=== PATIENT | male | born 1990 | race Caucasian/White ===

== ENCOUNTER 2019-01-27 08:17 | Emergency (ER) | payer OTHER ==
[~2019-01-27] VITALS: Ht 167.6 cm; Wt 90.0 kg
[2019-01-27] MEDS ORDERED: SODIUM CHLORIDE 0.9% 1,000 ML IV ONE (09:15)
[2019-01-27] MEDS ORDERED: DICYCLOMINE 10 MG/5 ML ORAL SYR PO STA (09:15)
[2019-01-27] MEDS ORDERED: MAGNESIUM/ALUMINUM HYDROXIDE/SIMETHICONE 30ML UDC PO STA (09:15)
[2019-01-27] MEDS ORDERED: VISCOUS LIDOCAINE 2% 15 ML UDC PO STA (09:15)
[2019-01-27] MEDS ORDERED: MORPHINE SULFATE 4 MG/ML CPJ (NOT FOR IM USE) IV STA (09:15)
[2019-01-27] MEDS ORDERED: FAMOTIDINE 20MG/2ML VIAL IV ONE (09:30)
[2019-01-27 10:01] LABS: HEMATOCRIT. 49.7 % (42.0-52.0); HEMOGLOBIN. 16.6 g/dL (14.0-18.0); MEAN CORPUSCULAR VOLUME 83.4 fL (80.0-94.0); MEAN PLATELET VOLUME 7.6 fl (7.4-10.4); PLATELET 428 x1000/uL (130-400); RED BLOOD CELL COUNT 5.95 mill/uL (4.7-6.1)
[2019-01-27 10:07] LABS: CHLORIDE 104 mEq/L (98-107)
[2019-01-27 10:10] LABS: PROTHROMBIN TIME 10.7 sec (9.6-11.0)
[2019-01-27] MEDS ORDERED: ONDANSETRON HCL 4MG/2ML INJ IV ONE (10:15)
[2019-01-27 10:58] LABS: PLATELET ESTIMATE INCREASED
[2019-01-27 11:22] VITALS: BP 124/68
== END 2019-01-27 11:26 | disposition home or self-care (01) ==
LOC: ER 08:17
DX: R11.2 Nausea with vomiting, unspecified (principal); F12.10 Cannabis abuse, uncomplicated; Z88.0 Allergy status to penicillin
CPT/HCPCS: 36415; 80053; 83690; 85025; 85610; 96361; 96374; 96375; 99284; J2405; J3490; J7030